=== PATIENT | female | born 1945 | race Caucasian/White ===

== ENCOUNTER 2016-08-29 05:42 | Day surgery (SDC) | payer MEDICARE, BC ==
[2016-08-29] MEDS ORDERED: Lactated Ringers 1,000 ML IV SCH (06:15)
[2016-08-29] MEDS ORDERED: fentaNYL 100 MCG/2 ML SDV ONE (07:09)
[2016-08-29] MEDS ORDERED: Midazolam 1 MG/ML 2 ML SDV ONE (07:09)
[2016-08-29] MEDS ORDERED: Propofol 200 MG/20 ML SDV ONE (07:09)
[2016-08-29 09:40] VITALS: BP 114/65
--- NOTE | 2016-09-01 15:47 | OR ---
DATE OF PROCEDURE: 08/29/2016 PREOPERATIVE DIAGNOSIS: History of colonic polyps. POSTOPERATIVE DIAGNOSIS: History of colonic polyps with normal colonoscopic examination. OPERATIVE PROCEDURE: Flexible colonoscopy. ANESTHESIA: IV sedation. INDICATION FOR PROCEDURE: The patient is 2 years' status post colonoscopy, in which an adenomatous polyp was removed. The plan is to proceed with a followup colonoscopy with biopsy and/or polypectomy as indicated. Potential risks of the procedure including bleeding and perforation were discussed, and the patient wishes to proceed. DETAILS OF PROCEDURE: The patient was taken to the operating room and placed in a left lateral decubitus position. After IV sedation was administered, the initial digital rectal exam was performed and was unremarkable. Colonoscope was then passed into the rectum with retroflexion revealing uncomplicated hemorrhoidal columns. The scope was eventually passed along the cecum and to that level, no abnormalities were noted. The patient had a good near prep along with mild amount of liquid stool present. The patient had no signs of recurrent polyps or other signs of neoplasia. No diverticula or areas of colitis were noted. The scope was then withdrawn. The above findings reconfirmed, and the procedure then concluded. Recommendation would be to repeat the colonoscopy in 5 years given the history of polyps. The patient is also complaining of some postprandial upper abdominal pain and nausea. She is scheduled to have a lysis of adhesions for recurrent partial small bowel obstruction on September 16 and will obtain a HIDA scan next Friday to evaluate the gallbladder with cholecystectomy potentially being done concurrently with that for the procedure on September 16. Felipe Mujica MD /[id number]
== END 2016-08-29 08:48 | disposition home or self-care (01) ==
LOC: JP.SDS 05:42
PROVIDERS: ATTEND Surgery
DX: Z12.11 Encounter for screening for malignant neoplasm of colon (principal); Z86.010 Personal history of colon polyps; R10.10 Upper abdominal pain, unspecified; R11.0 Nausea; I10 Essential (primary) hypertension; E11.9 Type 2 diabetes mellitus without complications; E78.5 Hyperlipidemia, unspecified
CPT/HCPCS: G0105; J2250; J2704; J3010; J7120

== ENCOUNTER 2016-09-16 09:27 | Inpatient (IN) | payer MEDICARE, BC ==
[~2016-09-16 09:27] MED LIST: Bupivacaine 0.5%/EPINEPHrine 1:200,000 50 ML MDV ONE; Meropenem 500 MG SDV ONE
[2016-09-16] MEDS ORDERED: Rocuronium 50 MG/5 ML Vial ONE (09:41)
[2016-09-16] MEDS ORDERED: fentaNYL 250 MCG/5 ML SDV ONE (09:41)
[2016-09-16] MEDS ORDERED: Propofol 200 MG/20 ML SDV ONE (09:41)
[2016-09-16] MEDS ORDERED: Ondansetron 4 MG/2 ML SDV ONE (09:41)
[2016-09-16] MEDS ORDERED: Dexamethasone 4 MG/ML SDV ONE (09:41)
[2016-09-16] MEDS ORDERED: Neostigmine Methylsulfate 1 MG/ML 5 ML Syringe ONE (09:41)
[2016-09-16] MEDS: cefOXitin 2 GM in Sodium Chloride 0.9% 50 ML IV ONE ×2 (13:17→17:53)
[2016-09-16] MEDS: Dextrose 5%-Lactated Ringers 1,000 ML IV SCH ×2 (13:27→17:46)
[2016-09-16] MEDS ORDERED: HYDROmorphone/Normal Saline 15 MG/30 ML PCA IV PRN (13:47)
[2016-09-16] MEDS ORDERED: Naloxone 0.4 MG/ML SDV IVPUSH PRN (13:47)
[2016-09-16] MEDS ORDERED: Naloxone 0.4 MG/ML SDV IV PRN (13:50)
[2016-09-16] MEDS ORDERED: Metoclopramide 10 MG/2 ML SDV ONE (15:04)
[2016-09-16] MEDS ORDERED: Insulin Aspart 100 Units/ML 3 ML Pen SUBCUT SCH (15:15)
[2016-09-16] MEDS ORDERED: Scopolamine 1.5 MG Transdermal Patch TRDERM SCH (15:30)
[2016-09-16] MEDS ORDERED: Ondansetron 4 MG/2 ML SDV IVPUSH PRN (16:18)
[2016-09-16] MEDS ORDERED: Glucose Gel 15 GM in 37.5 GM Tube PO PRN (16:25)
[2016-09-16] MEDS ORDERED: Glucagon,Human Recombinant 1 MG Vial IM PRN (16:25)
[2016-09-16] MEDS ORDERED: 50% Dextrose in Water 50 ML Syringe IVPUSH PRN (16:25)
[2016-09-16] MEDS: metFORMIN 500 MG Tab PO SCH (17:45)
[2016-09-16] MEDS: SCOPOLAMINE PATCH TOP SCH (17:53)
[2016-09-16] MEDS ORDERED: Pantoprazole 40 MG Vial IV SCH (18:00)
[2016-09-16] MEDS: cefOXitin 2 GM in Sodium Chloride 0.9% 50 ML IV SCH (20:27)
[2016-09-16] MEDS: hydrALAZINE 25 MG Tab PO SCH (20:34)
[2016-09-16] MEDS: Acetaminophen 1,000 MG in Premix Bag 1 BAG IV SCH (20:47)
[2016-09-16] MEDS ORDERED: Insulin Detemir 100 Units/ML 3 ML Pen SUBCUT SCH (21:00)
[2016-09-16] MEDS: Insulin Aspart 100 Units/ML 3 ML Pen SUBCUT PRN (21:34)
[2016-09-17] MEDS: cefOXitin 2 GM in Sodium Chloride 0.9% 50 ML IV SCH ×2 (02:50→08:20)
[2016-09-17] MEDS: Acetaminophen 1,000 MG in Premix Bag 1 BAG IV SCH ×2 (02:52→08:01)
[2016-09-17] MEDS ORDERED: HYDROmorphone 2 MG Tab PO PRN (03:30)
[2016-09-17] MEDS: metFORMIN 500 MG Tab PO SCH (07:57)
[2016-09-17] MEDS: Metoprolol Succinate 50 MG Tab.ER PO SCH ×2 (08:04→08:07)
[2016-09-17] MEDS: SCOPOLAMINE PATCH TOP SCH (08:08)
[2016-09-17] MEDS: Insulin Aspart 100 Units/ML 3 ML Pen SUBCUT PRN (08:14)
[2016-09-17 08:17] VITALS: BP 125/73
[2016-09-17] MEDS: hydrALAZINE 25 MG Tab PO SCH (08:17)
[2016-09-17] MEDS ORDERED: Liraglutide (rDNA Origin) 0.6 MG/0.1 ML 3 ML Pen SUBCUT SCH (09:00)
[2016-09-17] MEDS ORDERED: amLODIPine 10 MG Tab PO SCH (09:00)
[2016-09-17] MEDS ORDERED: Losartan 50 MG Tab PO SCH (09:00)
[2016-09-17] MEDS ORDERED: Hydrochlorothiazide 25 MG Tab PO SCH (09:00)
[2016-09-17] MEDS ORDERED: Aspirin 81 MG Tab.EC PO SCH (09:00)
--- NOTE | 2016-09-20 12:12 | DISCH ---
FINAL DIAGNOSES: 1. Biliary dyskinesia. 2. Partial small bowel obstruction secondary to adhesions and associated focal stricture of the small bowel. ADDITIONAL DIAGNOSES: 1. History of hypertension. 2. History of type 2 diabetes mellitus. 3. History of breast cancer with no known recurrence. 4. History of osteoarthritis. 5. History of dyslipidemia. OPERATIVE PROCEDURE: This was done on 09/16/2016; diagnostic laparoscopy with lysis of adhesions and, A. Cholecystectomy. B. Small-bowel strictureplasty. C. Placement of Interceed mesh to limit recurrent adhesion formation. HOSPITAL COURSE: This is a 70-year-old female presenting with recurrent partial small bowel obstruction. This was most pronounced after Luz fundoplication last fall, but she has had several attacks since that time. Also noted to have some biliary symptoms and had a CCK- stimulated HIDA scan, this had a normal numerical ejection fraction but caused reproduction of the patient's biliary type symptoms. Plan is to proceed with a laparoscopic cholecystectomy and small-bowel obstruction. Both the components were able to be completed laparoscopically. The patient's gallbladder was somewhat edematous and greyish in appearance consistent with chronic cholecystitis and did contain some small amount of tiny sludge and stones within it. Within the pelvis, the patient had quite a bit in way of omental adhesions. There was 1 section of small bowel that was particularly adherent to some of the adjacent mesentery which appeared to have a stricture at that location. This was taken down laparoscopically and the area reinforced with fibrin sealant. Interceed mesh was also placed to limit recurrent adhesion formation in that area. Postop, the patient tolerated a diet satisfactorily and will be sent home with a combination of Tylenol and/or Dilaudid. Otherwise, continue her usual medications, should be following up with Dr. Mujica in [facility] on 09/25/2016.
--- NOTE | 2016-09-23 09:44 | OR ---
DATE OF PROCEDURE: 09/16/2016 PREOPERATIVE DIAGNOSES: 1. Partial small bowel obstruction. 2. Biliary dyskinesia. POSTOPERATIVE DIAGNOSES: 1. Partial small bowel obstruction secondary to adhesions and focal stricture of small bowel. 2. Biliary dyskinesia. OPERATIVE PROCEDURE: 1. Diagnostic laparoscopy with lysis of adhesions:. a. Cholecystectomy (47901). b. Small bowel stricturoplasty (75528). c. Placement of Interceed mesh to limit recurrent adhesion formation within the pelvis and small bowel ([id number]). ANESTHESIA: General. BILLBOARD ERECTOR: Vickie Love PA-C and ABRAHAM Black. INDICATION FOR PROCEDURE: This is a 70-year-old female presenting with some episodes of recurrent small bowel obstruction. She was hospitalized last fall after having a Luz fundoplication, developed some degree of ileus, and then a full blown bowel obstruction treated with nasogastric tube. Over the winter, she has had several episodes of similar type of obstruction that were less severe and presents at this time for a diagnostic laparoscopy, possible laparotomy and release of the bowel obstruction with bowel resection as indicated. She also has has some separate symptoms suggestive of biliary colic. A CCK- stimulated HIDA scan while having a normal ejection fraction had a good reproduction of her symptoms and she will undergo a cholecystectomy as well. Potential risks of the procedures including bleeding, infection, and injury to underlying viscera, possible persistent or recurrent problems over time were all reviewed, and the patient wishes to proceed. PROCEDURE IN DETAIL: The patient was taken to the operating room. After general endotracheal anesthesia was induced and placed in a supine position, the abdomen was prepped and draped. Nelson catheter had been inserted. Beginning in the left upper quadrant, a transverse incision was made. The peritoneal cavity was entered under direct vision with Optiview trocar, and inflated to 15 mmHg pressure with CO2. Laparoscope was reinserted. Following this, eventually four additional 4 mm trocars were placed. Initial examination showed the gallbladder to be quite distended and diaz in appearance. As one peered down toward the pelvis, there was quite a bit in the way of adhesions between the omentum and anterior pelvic and abdominal wall. These did have some bowel loops running through them and would potentially be points of intermittent obstruction. Once these adhesions were lysed, there was an area of stricturing noted in the small bowel related to chronic scarring. This was then freed up with a Harmonic scalpel and the bowel was flipped over on itself open on the anterior mesenteric border and fired with internal firing of the IGNACIO andrade load, the common opening was closed with a purple load, thus completing the stricturoplasty, no mesenteric defect was noted. At this point, attention was taken to the cholecystectomy, the gallbladder was retracted anteriorly and laterally, and dissection began on the gallbladder neck, continued around the gallbladder neck and cystic duct junction. Once that area was well delineated, 3 clips were placed proximally, one distally in the gallbladder neck, cystic duct junction and cystic artery were divided. The gallbladder was then dissected off the gallbladder bed using Harmonic Scalpel, delivered through the upper midline port. This was noted to have some degree of sludge within it. Attention was once again taken down the pelvis. The area where the adhesion formation had been present was felt to likely readhere to the area where there appeared to have been the obstruction. Some fibrin glue was then placed over the area of the strictureplasty and some omentum pulled over surface of that. Between that area and the pelvis, Interceed mesh was placed to also separate the small bowel, omentum, and the abdominopelvic lubin to limit recurrent adhesion formation. The abdomen was irrigated with an antibiotic-containing saline solution and that point, no further problems were noted. Trocars were removed. The fascia at the 12 mm sites were closed with 0 Vicryl stitch and the skin with some 4-0 Vicryl skin stitch. Dressing was applied. The patient was taken to the recovery room in satisfactory condition. Physician assistant chief nursing officer, Vickie Love, played an essential role in assisting in this case, helping to position the patient, retract structures as needed, as well as cutting sutures and suturing when indicated. Her presence improved the patient's safety and decreased the operative time. Felipe Mujica MD /[id number]
== END 2016-09-17 10:38 | disposition home or self-care (01) | DRG 331 ==
LOC: JP.SDSSCHI 09:27 → JP.SDS 09:27 → EDSTATUS 10:15 → JP.2SS 15:20
PROVIDERS: ADMIT Surgery; ATTEND Surgery
PROC: 0FT44ZZ Resection of Gallbladder, Percutaneous Endoscopic Approach (ICD-10-PCS; principal; 2016-09-16)
PROC: 3E0M05Z Introduction of Adhesion Barrier into Peritoneal Cavity, Open Approach (ICD-10-PCS; principal; 2016-09-16)
PROC: 0DNW4ZZ Release Peritoneum, Percutaneous Endoscopic Approach (ICD-10-PCS; principal; 2016-09-16)
PROC: 0DQ84ZZ Repair Small Intestine, Percutaneous Endoscopic Approach (ICD-10-PCS; principal; 2016-09-16)
PROC: 0DNT4ZZ (ICD-10-PCS; principal; 2016-09-16)
DX: K56.5 Intestinal adhesions [bands] with obstruction (postinfection) (principal); K82.8 Other specified diseases of gallbladder; E11.9 Type 2 diabetes mellitus without complications; Z79.84 Long term (current) use of oral hypoglycemic drugs; I10 Essential (primary) hypertension; E78.5 Hyperlipidemia, unspecified; Z85.3 Personal history of malignant neoplasm of breast; M17.0 Bilateral primary osteoarthritis of knee
CPT/HCPCS: 36415; 80048; 80053; 82962; 83735; 84100; 85025; 85027; 88304; 94762; A9270-GY; C9113; J0131; J0694; J1100; J1170; J2185; J2405; J2704; J2765; J3010; J7042; J7050

== ENCOUNTER 2020-10-23 05:40 | Day surgery (SDC) | payer MEDICARE, BC ==
[~2020-10-23 05:40] MED LIST changes: -Bupivacaine 0.5%/EPINEPHrine 1:200,000 50 ML MDV ONE; +Lactated Ringers 1,000 ML IV SCH; -Meropenem 500 MG SDV ONE
[2020-10-23] MEDS ORDERED: Lactated Ringers 1,000 ML IV SCH (06:45)
[2020-10-23] MEDS ORDERED: Propofol 200 MG/20 ML SDV ONE (07:05)
[2020-10-23] MEDS ORDERED: fentaNYL 100 MCG/2 ML SDV ONE (07:05)
[2020-10-23] MEDS ORDERED: Midazolam 1 MG/ML 2 ML SDV ONE (07:05)
[2020-10-23] MEDS ORDERED: Amoxicillin 500 MG Cap PO ONE (08:00)
[2020-10-23 08:48] VITALS: BP 116/65; PULSE 76
--- NOTE | 2020-10-30 12:20 | OR ---
DATE OF PROCEDURE: 10/23/2020 SURGEON: Felipe Mujica MD PREOPERATIVE DIAGNOSES: Epigastric discomfort and heartburn. POSTOPERATIVE DIAGNOSES: 1. Intact Luz fundoplication without significant inflammation of esophagogastric junction. 2. Diffuse mild gastritis with minimal residual food (bezoar) with focal erosions in antrum. OPERATIVE PROCEDURE: Esophagogastroduodenoscopy with antral biopsies for CLOtest. ANESTHESIA: IV sedation. INDICATIONS FOR PROCEDURE: This is a 75-year-old female, some time status post Luz fundoplication, initially got a very good result, now recently is having some increasing sense of heartburn again as well as epigastric fullness. She did start Protonix and stopped Victoza, which she has found somewhat helpful with regard to those symptoms. The plan is to proceed with upper GI endoscopy with biopsies and dilation as indicated. Potential risks of the procedure including bleeding and perforation were discussed and the patient wishes to proceed. DETAILS OF PROCEDURE: The patient was taken to the operating room and placed in a left lateral decubitus position. IV sedation was administered, after which the upper GI endoscope was passed orally through the length of the esophagus into the stomach with retroflexion view of the fundus, thereafter through the pyloric channel into the proximal duodenum. The patient overall had no significant inflammation of hypopharynx, larynx, upper esophageal sphincter, and esophageal body. At the EG junction, she had an intact Luz effect and there was no significant inflammation grossly seen at the esophagogastric junction. Within the stomach, there was some scattered old food present. This was more of particles of food rather than any well-defined bezoar. There was more or less a diffuse mild gastritis, which was more intense in the antrum, where there were some focal erosions present. The pyloric channel was widely patent and visualized portions of the duodenum were unremarkable. At this point, biopsies were obtained from the antrum and sent for CLOtest for H pylori. Minimal bleeding from the biopsy site was seen, and the procedure was then concluded. The patient was taken to the recovery room in satisfactory condition. The plan will be to continue the present medical management, i.e. off Victoza and continue the Protonix. Felipe Mujica MD /[id number]
== END 2020-10-23 08:45 | disposition home or self-care (01) ==
LOC: JP.SDS 05:40
PROVIDERS: ATTEND Surgery
DX: K20.90 Esophagitis, unspecified without bleeding (principal); K25.9 Gastric ulcer, unspecified as acute or chronic, without hemorrhage or perforation; T18.2XXA Foreign body in stomach, initial encounter; K29.70 Gastritis, unspecified, without bleeding; I10 Essential (primary) hypertension; E78.5 Hyperlipidemia, unspecified; G47.33 Obstructive sleep apnea (adult) (pediatric); E11.9 Type 2 diabetes mellitus without complications
CPT/HCPCS: 43239; 87081; A9270; J2704; J3010; J7120; J2250

== ENCOUNTER 2020-11-06 07:23 | Inpatient (IN) | payer MEDICARE, BC ==
[2020-11-06] MEDS ORDERED: Acetaminophen 500 MG Tab PO ONE (08:00)
[2020-11-06] MEDS ORDERED: Ondansetron 4 MG/2 ML SDV ONE (08:07)
[2020-11-06] MEDS ORDERED: Glycopyrrolate 0.2 MG/ML 5 ML MDV ONE (08:07)
[2020-11-06] MEDS ORDERED: Neostigmine Methylsulfate 1 MG/ML 5 ML Syringe ONE (08:07)
[2020-11-06] MEDS ORDERED: Rocuronium 50 MG/5 ML Vial ONE (08:07)
[2020-11-06] MEDS: Lactated Ringers 1,000 ML IV SCH ×2 (08:07→22:42)
[2020-11-06] MEDS ORDERED: Dexamethasone 4 MG/ML SDV ONE (08:07)
[2020-11-06] MEDS ORDERED: fentaNYL 250 MCG/5 ML SDV ONE (08:07)
[2020-11-06] MEDS ORDERED: Propofol 200 MG/20 ML SDV ONE (08:07)
[2020-11-06] MEDS ORDERED: Succinylcholine 200 MG/10 ML MDV ONE (08:07)
--- NOTE | 2020-11-06 08:25 | PCM.HP.2 ---
H&P History of Present Illness - General Date of Service: 11/06/20 Source of Information: Patient History Limitations: Reports: No Limitations - History of Present Illness Initial Comments - Free Text/Narative: Nancy reports that her thyroid labs have been abnormal for about 1 year and the past 4 months she has been symptomatic. Symptoms of weight loss, fatigue, dysphagia, heart racing and hand tremor. Onset of Symptoms: Reports: Gradual Associated Symptoms: Reports: No Other Symptoms Neck Pain Score (Numeric/FACES): 3 - Related Data Allergies/Adverse Reactions: Allergies Allergy/AdvReac Type Severity Reaction Status Date / Time No Known Allergies Allergy Verified 11/06/20 07:53 Home Medications: Home Meds Hydrochlorothiazide/Losartan [Hyzaar 100-25 MG] 25 - 100 mg PO DAILY 08/17/14 [History] amLODIPine [Norvasc] 10 mg PO DAILY 08/17/14 [History] hydrALAZINE [Apresoline] 25 mg PO BID 08/17/14 [History] Rosuvastatin [Crestor] 20 mg PO DAILY 01/25/16 [History] Cyanocobalamin (Vitamin B-12) [Vitamin B-12] 1,000 mcg PO DAILY 08/27/16 [History] Pantoprazole Sodium [Protonix] 40 mg PO DAILY 10/11/20 [History] Semaglutide [Ozempic] 0.25 mg SQ Q7D 10/11/20 [History] Amoxicillin 2,000 mg PO ASDIRECTED 11/03/20 [History] Aspirin [Adult Low Dose Aspirin EC] 81 mg PO DAILY 11/03/20 [History] metFORMIN [Riomet] 1,000 mg PO BID 11/03/20 [History] Past Medical History HEENT History: Reports: Impaired Vision, Otitis Media Other HEENT History: tinnitus Cardiovascular History: Reports: High Cholesterol, Hypertension Gastrointestinal History: Reports: Bowel Obstruction, Colon Polyp, Gastritis, GERD, Hiatal Hernia Other Gastrointestinal History: bowel obstruction from this stay Genitourinary History: Reports: None CURRICULUM DEVELOPER History: Reports: Dysfunctional Uterine Bleeding, Fibroids, Musculoskeletal History: Reports: Arthritis, Fracture Other Musculoskeletal History: wrist right-plate Neurological History: Reports: Vertigo Other Neuro History: tremor Endocrine/Metabolic History: Reports: Diabetes, Type II, IDDM Hematologic History: Reports: Anemia Oncologic (Cancer) History: Reports: Breast Other Oncologic History: left- no node involvement Dermatologic History: Reports: Other (See Below) Other Dermatologic History: ganglion cyst right leg lipoma left arm - Infectious Disease History Infectious Disease History: Reports: Measles - Past Surgical History Musculoskeletal Surgical History: Reports: Ganglion Cyst, Knee Replacement, Other (See Below) Other Musculoskeletal Surgeries/Procedures:: bilat knee-Jan 2018 Oncologic Surgical History: Reports: Mastectomy Social & Family History - Family History Family Medical History: No Pertinent Family History HEENT: Reports: Cataract Cardiac: Reports: High Cholesterol, Hypertension, PVD/COD : Reports: Diabetic Nephropathy Musculoskeletal: Reports: Arthritis Neurological: Reports: Neuropathy, Diabetic Endocrine/Metabolic: Reports: Diabetes, Type I - Tobacco Use Tobacco Use Status *Q: Never Tobacco User - Caffeine Use Caffeine Use: Reports: Coffee Caffeine Use Comment: 2-3 cups/day - Recreational Drug Use Recreational Drug Use: No H&P Review of Systems - Review of Systems: Review Of Systems: See Below General: Reports: Fatigue, Weight Loss HEENT: Reports: No Symptoms Pulmonary: Reports: No Symptoms Cardiovascular: Reports: No Symptoms Gastrointestinal: Reports: Decreased Appetite, Other (dysphagia) Genitourinary: Reports: No Symptoms Musculoskeletal: Reports: No Symptoms Skin: Reports: No Symptoms Psychiatric: Reports: No Symptoms Neurological: Reports: Tremors (hands) Hematologic/Lymphatic: Reports: No Symptoms Immunologic: Reports: No Symptoms Exam - Exam Exam: See Below - Vital Signs Vital Signs: Last Vital Signs Temp 97.0 F 11/06/20 07:51 Pulse 86 11/06/20 07:51 Resp 16 11/06/20 07:51 BP 120/59 L 11/06/20 07:51 Pulse Ox 97 11/06/20 07:51 Weight: 134 lb 3.2 oz - Exam General: Alert, Oriented, Cooperative HEENT: PERRLA Neck: Supple, Thyromegaly Lungs: Clear to Auscultation, Normal Respiratory Effort Cardiovascular: Regular Rate, Regular Rhythm GI/Abdominal Exam: Soft, Non-Tender (Female) Exam: Deferred Rectal (Female) Exam: Deferred Back Exam: Normal Inspection, Full Range of Motion Extremities: Normal Inspection, Normal Range of Motion, No Pedal Edema Skin: Warm, Dry, Intact Neurological: Cranial Nerves Intact, Reflexes Equal Bilateral Neuro Extensive - Mental Status: Alert, Oriented x3, Normal Mood/Affect, Normal Cognition, Memory Intact Neuro Extensive - Motor, Sensory, Reflexes: CN II-XII Intact Psychiatric: Alert, Normal Affect, Normal Mood Sepsis Event Note - Focused Exam Vital Signs: Vital Signs Temp Pulse Resp BP Pulse Ox 11/06/20 07:51 97.0 F 86 16 120/59 L 97 - Problem List (1) Thyroid goiter SNOMED Code(s): 4643458 ICD Code: E04.9 - NONTOXIC GOITER, UNSPECIFIED Status: Acute Current Visit: Yes (2) Toxic thyroid nodule SNOMED Code(s): 70407704 ICD Code: E05.10 - THYROTXCOSIS W TOXIC SING THYROID NODULE W/O THYROTXC CRISIS Status: Acute Current Visit: Yes Problem List Initiated/Reviewed/Updated: Yes Orders Last 24hrs: Active Orders 24 hr Category Date Time Status RT Incentive Spirometry [RC] ASDIRECTED Care 11/06/20 08:00 Active CBC W/O DIFF,HEMOGRAM [HEME] Routine Lab 11/06/20 08:12 Ordered COMPREHENSIVE METABOLIC PN,CMP [CHEM] Routine Lab 11/06/20 08:12 Ordered MAGNESIUM [CHEM] Routine Lab 11/06/20 08:12 Ordered PHOSPHORUS [CHEM] Routine Lab 11/06/20 08:12 Ordered Lactated Ringers [Ringers, Lactated] 1,000 ml Med 11/06/20 08:00 Active IV ASDIRECTED ceFAZolin [Ancef 2 GM/50 ML] 2 gm Med 11/06/20 08:30 Active Premix Bag 1 bag IV ONETIME Sequential Compression Device [OM.PC] Routine Oth 11/06/20 08:00 Ordered EKG 12 Lead [EK] Routine Ther 11/06/20 08:00 Ordered Medication Orders Lactated Ringer's (Ringers, Lactated) 1,000 mls @ 100 mls/hr IV ASDIRECTED YANNICK Last Admin: 11/06/20 08:07 Dose: 100 mls/hr Documented by: PEREZ Cefazolin Sodium/Dextrose 2 gm (/ Premix) 50 mls @ 100 mls/hr IV ONETIME ONE Stop: 11/06/20 08:59 Assessment/Plan Comment:: Assessment: Toxic Nodule Right Thyroid Large Goiter Left Thyroid with Family History or Thyroid Cancer Controlled Type 2 Diabetes Personal History of malignant neoplasm of breast Benign Essential Hypertension Dyslipidemia Tubular adenoma of colon Plan: Total Thyroidectomy with Frozen Sections - General Anesthesia - 11/06/2020 - Felipe Mujica MD After preoperative evaluation and discussion of possible risks and complications patients wishes to proceed with surgical procedure. Vickie Clement 11/06/2020 - Mortality Measure Prognosis:: Good
[2020-11-06] MEDS ORDERED: ceFAZolin 2 GM in Premix Bag 1 BAG IV ONE (08:30)
[2020-11-06] MEDS ORDERED: fentaNYL 100 MCG/2 ML SDV ONE (10:38)
[2020-11-06] MEDS: metFORMIN 500 MG Tab PO SCH ×2 (13:22→17:08)
[2020-11-06] MEDS ORDERED: Glucagon,Human Recombinant 1 MG Vial IM PRN (13:54)
[2020-11-06] MEDS ORDERED: 50% Dextrose in Water 50 ML Syringe IVPUSH PRN (13:54)
[2020-11-06] MEDS ORDERED: Glucose Gel 15 GM in 37.5 GM Tube PO PRN (13:54)
[2020-11-06] MEDS ORDERED: Ondansetron 4 MG/2 ML SDV IVPUSH PRN (14:00)
[2020-11-06] MEDS ORDERED: HYDROmorphone 0.5 MG/0.5 ML Syringe IVPUSH PRN (14:00)
[2020-11-06] MEDS ORDERED: Acetaminophen 325 MG Tab PO SCH (14:00)
[2020-11-06] MEDS ORDERED: HYDROmorphone 1 MG/ML Syringe IV PRN (14:00)
[2020-11-06] MEDS: HYDROmorphone 2 MG Tab PO PRN ×2 (14:14→20:04)
[2020-11-06] MEDS: Acetaminophen Soln 650 MG/20.3 ML UD Cup PO SCH ×2 (14:19→19:50)
[2020-11-06] MEDS: Magnesium Sulfate/Water 2 GM in Premix Bag 1 BAG IV SCH ×2 (14:23→19:50)
[2020-11-06] MEDS: Insulin Lispro 100 Unit/ML 3 ML KwikPen SUBCUT SCH ×2 (17:05→22:06)
[2020-11-06] MEDS: ceFAZolin 1 GM in Premix Bag 1 BAG IV SCH (17:08)
[2020-11-06] MEDS: hydrALAZINE 25 MG Tab PO SCH (22:05)
[2020-11-07] MEDS: HYDROmorphone 2 MG Tab PO PRN (00:06)
[2020-11-07] MEDS: ceFAZolin 1 GM in Premix Bag 1 BAG IV SCH ×2 (00:06→08:33)
[2020-11-07] MEDS: Magnesium Sulfate/Water 2 GM in Premix Bag 1 BAG IV SCH ×4 (02:57→20:21)
[2020-11-07] MEDS: Acetaminophen Soln 650 MG/20.3 ML UD Cup PO SCH ×4 (02:59→20:21)
[2020-11-07] MEDS: Insulin Lispro 100 Unit/ML 3 ML KwikPen SUBCUT SCH ×4 (05:14→21:44)
[2020-11-07] MEDS ORDERED: Calcium Carbonate 500 MG Tab.Chew PO PRN (07:32)
--- NOTE | 2020-11-07 08:06 | PCM.EKG ---
#1 Interpretation EKG Date: 11/06/20 Time: 07:39 Rhythm: NSR Rate (Beats/Min): 83 [place]: Normal P-Wave: Present QRS: Normal ST-T: Normal QT: Normal Comparison: NA - No Prior EKG
[2020-11-07] MEDS: Losartan 50 MG Tab PO SCH (08:35)
[2020-11-07] MEDS: amLODIPine 5 MG Tab PO SCH (08:36)
[2020-11-07] MEDS: hydrALAZINE 25 MG Tab PO SCH ×2 (08:36→20:26)
[2020-11-07] MEDS: Aspirin 81 MG Tab.EC PO SCH (08:36)
[2020-11-07] MEDS: Pantoprazole 40 MG Tab.CR PO SCH (08:37)
[2020-11-07] MEDS: metFORMIN 500 MG Tab PO SCH ×2 (08:37→17:45)
[2020-11-07] MEDS: Hydrochlorothiazide 25 MG Tab PO SCH (08:38)
[2020-11-07] MEDS: Rosuvastatin 10 MG Tab PO SCH (08:38)
[2020-11-07] MEDS ORDERED: Potassium Chloride 20 MEQ Tab.ER PO ONE (09:00)
--- NOTE | 2020-11-07 09:54 | PN ---
DATE OF SERVICE: 11/07/2020 SUBJECTIVE: Deirdre is postop day #1. Pain has been controlled with Tylenol liquid and Dilaudid. She has had 840 in orally and 3200 out. HIGINIO drain put out 105 of a light red drainage. REVIEW OF SYSTEMS: Remainder of review of systems negative for any pertinent positives and negatives. OBJECTIVE: GENERAL: Deirdre Alba is a pleasant 75-year-old female. VITAL SIGNS: TPR is 95.7, 71, 16, blood pressure 105/57. HEENT: Negative. NECK: Dressing dry and intact. HIGINIO drain as above. Voice is normal. HEART: Regular rate and rhythm. LUNGS: Clear. EXTREMITIES: Without peripheral edema. ASSESSMENT: Total thyroidectomy with removal of left substernal "goiter." POSTOPERATIVE DIAGNOSIS: 1. Hyperthyroidism secondary to toxic thyroid nodule right side of isthmus. 2. Large goiter left thyroid with marked pressure symptoms and substernal extension. 3. Date of procedure: 11/06/2020. Surgeon: Felipe Mujica MD. PLAN: 1. KCl 40 mEq p.o. 1 time. 2. Consistent carb regular diet. 3. Remove dressing. 4. Saline lock IV if oral intake adequate. 5. Dilaudid orally. 6. Tums 1000 mg q.2 hours p.r.n. any numbness, tingling in face or extremities. 7. Communication order: May take what the patient desires for cough. 8. Check CBC, CMP, and phos in a.m. 9. We will evaluate p.r.n. or in a.m. Vickie Love PA-C /[id number]
[2020-11-08] MEDS: Magnesium Sulfate/Water 2 GM in Premix Bag 1 BAG IV SCH ×2 (02:14→07:39)
[2020-11-08] MEDS: Acetaminophen Soln 650 MG/20.3 ML UD Cup PO SCH ×2 (02:14→07:45)
[2020-11-08] MEDS: Insulin Lispro 100 Unit/ML 3 ML KwikPen SUBCUT SCH (07:47)
[2020-11-08] MEDS: Pantoprazole 40 MG Tab.CR PO SCH (07:47)
[2020-11-08] MEDS: metFORMIN 500 MG Tab PO SCH (07:47)
[2020-11-08 07:54] VITALS: BP 120/74; PULSE 70
[2020-11-08] MEDS: hydrALAZINE 25 MG Tab PO SCH ×2 (07:54→08:24)
[2020-11-08] MEDS: Losartan 50 MG Tab PO SCH ×2 (07:56→08:25)
[2020-11-08] MEDS: amLODIPine 5 MG Tab PO SCH ×2 (07:57→08:25)
[2020-11-08] MEDS: Hydrochlorothiazide 25 MG Tab PO SCH (07:59)
[2020-11-08] MEDS ORDERED: Levothyroxine 100 MCG Tab PO SCH (08:10)
[2020-11-08] MEDS: Rosuvastatin 10 MG Tab PO SCH (08:25)
[2020-11-08] MEDS: Aspirin 81 MG Tab.EC PO SCH (08:25)
--- NOTE | 2020-11-09 13:04 | DISCH ---
ADMISSION DIAGNOSES: 1. Toxic thyroid nodule on the right and thyroid goiter left. 2. Type 2 diabetes. 3. Benign essential hypertension. 4. Tubular adenoma of colon. 5. History of breast cancer. DISCHARGE DIAGNOSIS: Total thyroidectomy with removal of left substernal (goiter). POSTOPERATIVE DIAGNOSES: 1. Hyperthyroidism secondary to toxic thyroid nodule, right side of isthmus. 2. Large goiter, left thyroid with marked pressure symptoms and substernal extension. 3. Date of procedure: 11/06/2020. Surgeon: Felipe Mujica MD. HISTORY: Deirdre Alba is a pleasant 75-year-old female with symptomatic hyperthyroidism. After preoperative evaluation and discussion of possible risks and possible complications, she wished to proceed with surgical procedure. HOSPITAL COURSE: Deirdre had her surgery on 11/06/2020. She had no operative complications. On postoperative day #1, her potassium was low and she was given 1 dose of KCl 40 mEq. Diet was restarted. IV was saline locked. She was started on Dilaudid orally. On postoperative day #2, hemoglobin was 8.7, ferritin was 107, potassium was 3.7. Pain was controlled. Activity was good. Oral intake adequate. Vital signs stable. She was able to be discharged to home. PHYSICAL EXAMINATION: GENERAL: Deirdre Alba is a pleasant 75-year-old female. VITAL SIGNS: Height is 5 feet 3 inches, weight 134 pounds, BMI is 23. TPR is 95.4, 70, 16, blood pressure 120/74. HEENT: Negative. NECK: Incision looks good. HIGINIO drain intact draining a serosanguineous drainage and was 13 over the past 24 hours. HEART: Regular rate and rhythm. LUNGS: Clear. EXTREMITIES: Negative. DISPOSITION: Discharged to home. CONDITION: Stable and improving. FOLLOWUP: 1. With Vickie Love PA-C, on 11/10/2020 at 10 a.m. 2. Followup with Felipe Mujica MD, on 11/15/2020 at 10 a.m. 3. Check a CMP and CBC prior to that appointment at 9:30. HOME MEDICATIONS: Dilaudid 2 mg p.o. q.4 hours p.r.n. pain, #12; and Synthroid 100 mcg p.o. before breakfast, #90. To resume home medications. DIET: Diabetic diet as tolerated. Drink 8 to 10 glasses of water a day. ACTIVITY: No lifting greater than 10 pounds for 6 weeks. OTHER ACTIVITY: Walk 6 times daily inside your home unless you are with someone. Driving: Do not drive for 1 week or within 6 hours of taking pain medication. Shower/bathing: May shower. DISCHARGE INSTRUCTIONS: Notify provider if any fever, increased pain, swelling, redness, drainage, nausea, or vomiting. SPECIAL INSTRUCTIONS: 1. Strip, empty, measure, and record HIGINIO drain 4 times a day. 2. Bring record of HIGINIO drainage to clinic appointment. 3. If you should experience any numbness or tingling in face or extremities, call hospital or clinic and take 2 Tums every 2 hours until symptoms go away. You may be asked to come into the lab for some blood tests. /[id number]
[2020-11-12] MEDS ORDERED: OZEMPIC SUBCUT SCH (09:00)
--- NOTE | 2020-11-20 10:37 | OR ---
DATE OF PROCEDURE: 11/06/2020 SURGEON: Felipe Mujica MD PREOPERATIVE DIAGNOSES: 1. 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 2. 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 OPERATIVE PROCEDURE: Thyroid exploration with total thyroidectomy including removal of left substernal goiter ([id number]). ANESTHESIA: General. ADMINISTRATION INTERNSHIP: Vickie Love PA-C. INDICATIONS FOR PROCEDURE: This is a 75-year-old female recently noted to be hyperthyroid by evidence of a low TSH. A nuclear medicine scan was obtained which showed a single toxic nodule in the right thyroid lobe more or less adjacent to isthmus. The patient was also noted to have a very large goiter involving the left thyroid lobe with 2 nodules there that were clinically meeting criteria for fine-needle aspiration. Given this, the plan is to proceed with a total thyroidectomy with intraoperative frozen section. Potential risks of the procedure including bleeding, infection, injury to the recurrent laryngeal nerve, problems with either short-term or long-term hypoparathyroidism as well as remote possibility of cardiopulmonary, septic, or hemorrhagic complications leading to were discussed, and the patient wishes to proceed. DETAILS OF PROCEDURE: The patient was taken to the operating room, placed in a supine position. After general endotracheal anesthesia was induced, a roll was placed underneath the shoulders and the upper chest and neck areas were prepped and draped. A transverse collar incision was then made and carried down through the skin, subcutaneous tissue, platysmal area. Subplatysmal flaps were then raised superiorly and inferiorly and the strap muscles were then divided in the midline. Initial dissection began on the right side with retraction of the strap muscles off the right thyroid lobe. The isthmus was then initially divided more or less flush with the left thyroid lobe. On the right side, then the inferior and middle thyroid veins were divided with Harmonic scalpel, and the upper pole vessels were then taken with Harmonic scalpel as well. The right lobe was then mobilized medially and the branches of the inferior thyroid artery were divided flush with the capsule reflecting the parathyroid glands away from the capsule during the course of that dissection. The main attachments of the trachea and ligament of [place] were then taken with Harmonic scalpel. The recurrent laryngeal nerve was identified and confirmed to be intact at the conclusion of the procedure. Attention was then taken to the left side. This lobe was quite large and had a significant substernal component extending down to the level of the aortic arch. This substernal component was initially mobilized upward bluntly and similar dissection and division of the vessels as per the right side was accomplished and that specimen delivered from the field. Again, the recurrent laryngeal nerve on the left side was confirmed to be intact and the parathyroid glands appeared to be intact as well, as they had been reflected off the capsule of the thyroid gland maintaining blood supply from the inferior thyroid artery. Frozen sections of the nodules were obtained. These all appeared to be follicular lesions. At the size that they were presently identified at, these likely will be benign as follicular lesions over 4 cm tend to be more likely malignant and the differentiation would be on the permanent sections based on the evidence of capsular and vascular invasion. There is no central lymphadenopathy present. The strap muscles were then approximated with a 3-0 Vicryl stitch after a Khris-Beyer drain had been placed to the left side of the neck and draped across the area of the dissection. The platysmal layer was then closed with a 4-0 Vicryl stitch and the skin with a 5-0 Vicryl subcuticular stitch and surgical glue applied. Pressure dressing was placed. Drain was sutured to the skin with some 4-0 Vicryl stitch and the patient was taken to the recovery room in satisfactory condition. Physician instructional support assistant, Vickie Love, played an essential role in assisting in this case, helping to position the patient, retract structures as needed as well as suturing and cutting sutures when indicated. Her presence improved patient safety and decreased the operative time. Felipe Mujica MD /[id number]
== END 2020-11-08 11:10 | disposition home or self-care (01) | DRG 627 ==
LOC: JP.SDS 07:23 → JP.SDSSCHI 07:23 → EDSTATUS 08:45 → JP.MS 11:10
PROVIDERS: ADMIT Surgery; ATTEND Surgery
PROC: 0GTJ0ZZ Resection of Thyroid Gland Isthmus, Open Approach (ICD-10-PCS; principal; 2020-11-06)
PROC: 0GTH0ZZ Resection of Right Thyroid Gland Lobe, Open Approach (ICD-10-PCS; 2020-11-06)
PROC: 0GTG0ZZ Resection of Left Thyroid Gland Lobe, Open Approach (ICD-10-PCS; 2020-11-06)
DX: E05.20 Thyrotoxicosis with toxic multinodular goiter without thyrotoxic crisis or storm (principal); E04.9 Nontoxic goiter, unspecified; H54.7 Unspecified visual loss; E78.00 Pure hypercholesterolemia, unspecified; I10 Essential (primary) hypertension; K21.9 Gastro-esophageal reflux disease without esophagitis; K44.9 Diaphragmatic hernia without obstruction or gangrene; M19.90 Unspecified osteoarthritis, unspecified site; D64.9 Anemia, unspecified; Z96.659 Presence of unspecified artificial knee joint; E78.5 Hyperlipidemia, unspecified; D12.6 Benign neoplasm of colon, unspecified; Z79.899 Other long term (current) drug therapy; Z79.82 Long term (current) use of aspirin; Z79.84 Long term (current) use of oral hypoglycemic drugs; Z85.3 Personal history of malignant neoplasm of breast
CPT/HCPCS: 36415; 80053; 82728; 82947; 83735; 84100; 85027; 88307; 93005; 94762; A9270-GY; J0330; J0690; J1100; J1815; J2020; J2405; J2704; J2710; J3010; J3475; J3490; J7120

== ENCOUNTER 2023-01-01 08:27 | Day surgery (SDC) | payer MEDICARE, BC ==
[~2023-01-01 08:27] MED LIST changes: -Lactated Ringers 1,000 ML IV SCH; +Propofol 200 MG/20 ML SDV ONE; +fentaNYL 50 MCG/ML SDV ONE
[2023-01-01] MEDS ORDERED: Lactated Ringers 1,000 ML IV SCH (09:00)
[2023-01-01] MEDS ORDERED: Dextrose 5%-Lactated Ringers 1,000 ML IV SCH (09:30)
[2023-01-01 11:02] LABS: BASOPHILS ABSOLUTE AUTO 0.03 K/uL (0.00-0.10); BASOPHILS PERCENT AUTO 0.5 % (0.1-1.3); EOSINOPHILS ABSOLUTE AUTO 0.04 K/uL (0.00-0.40); EOSINOPHILS PERCENT AUTO 0.7 % (0.0-5.4); IMMATURE GRAN ABSOLUTE AUTO 0.03 K/uL (0.00-0.23); IMMATURE GRAN PERCENT AUTO 0.5 % (0.0-0.7); LYMPHOCYTES ABSOLUTE AUTO 0.74 K/uL (0.8-3.3); LYMPHOCYTES PERCENT AUTO 12.5 % (11.4-47.7); MEAN CORPUSCULAR HGB CONC 33.3 g/dL (31.6-35.5); MEAN CORPUSCULAR VOLUME 95.9 fL (81.4-99.0); MONOCYTES ABSOLUTE AUTO 0.55 K/uL (0.20-0.90); MONOCYTES PERCENT AUTO 9.3 % (3.3-12.6); NEUTROPHILS ABSOLUTE AUTO 4.53 K/uL (1.0-7.6); NEUTROPHILS PERCENT AUTO 76.5 % (40.0-78.1); PLATELET COUNT,PLT 163 K/uL (130-375); RED BLOOD CELL COUNT 3.44 M/uL (3.77-5.24); WHITE BLOOD CELL COUNT,WBC 5.9 K/uL (3.2-11.0)
[2023-01-01 11:22] LABS: A/G RATIO 1.2 (1.2-2.2); ALANINE AMINOTRANSFERASE,ALT 30 U/L (12-78); ALBUMIN 3.3 g/dL (3.4-5.0); ALKALINE PHOSPHATASE 41 U/L (46-116); ASPARTATE AMNIOTRANSFERASE,AST 13 U/L (15-37); BILIRUBIN TOTAL 1.3 mg/dL (0.2-1.0); BLOOD UREA NITROGEN,BUN 17 mg/dL (7-18); CALCIUM 7.3 mg/dL (8.5-10.1); CARBON DIOXIDE,CO2 23 mmol/L (21-32); CHLORIDE,CL 107 mmol/L (100-108); CREATININE 1.3 mg/dL (0.6-1.0); EST CRCL DRUG DOSING (CG) 29.98 mL/min; ESTIMATED GFR 42 mL/min (>60); GLUCOSE RANDOM 84 mg/dL (74-106); POTASSIUM,K 3.2 mmol/L (3.6-5.2); PROTEIN TOTAL,TP 6.1 g/dL (6.4-8.2); SODIUM,NA 140 mmol/L (140-148)
[2023-01-01 11:24] LABS: ANION GAP 13.2 mmol/L (5.0-14.0)
[2023-01-01] MEDS: Potassium Chloride 10 MEQ in Premix Bag 1 BAG IV SCH ×2 (11:39→12:47)
[2023-01-01 13:42] VITALS: BP 130/67; PULSE 79
== END 2023-01-01 13:50 | disposition home or self-care (01) ==
LOC: JP.SDS 08:27
PROVIDERS: ATTEND Student in an Organized Health Care Education/Training Program
DX: Z12.11 Encounter for screening for malignant neoplasm of colon (principal); D12.0 Benign neoplasm of cecum; E78.00 Pure hypercholesterolemia, unspecified; E11.22 Type 2 diabetes mellitus with diabetic chronic kidney disease; Z80.0 Family history of malignant neoplasm of digestive organs; N18.9 Chronic kidney disease, unspecified; Z79.4 Long term (current) use of insulin
CPT/HCPCS: 36415; 45380; 80053; 85025; 88305; J1642; J2704; J3010; J3480; J7121

== ENCOUNTER 2023-12-26 16:39 | Emergency (ER) | payer MEDICARE, BC ==
[2023-12-26 17:22] VITALS: BP 132/60; PULSE 76
== END 2023-12-26 19:09 | disposition home or self-care (01) ==
LOC: JP.ED 16:39
DX: H53.2 Diplopia (principal); I12.9 Hypertensive chronic kidney disease with stage 1 through stage 4 chronic kidney disease, or unspecified chronic kidney disease; N18.9 Chronic kidney disease, unspecified; E78.00 Pure hypercholesterolemia, unspecified; K21.9 Gastro-esophageal reflux disease without esophagitis; E11.22 Type 2 diabetes mellitus with diabetic chronic kidney disease; E05.90 Thyrotoxicosis, unspecified without thyrotoxic crisis or storm; Z90.49 Acquired absence of other specified parts of digestive tract; Z90.710 Acquired absence of both cervix and uterus; Z79.82 Long term (current) use of aspirin; Z79.2 Long term (current) use of antibiotics; Z79.890 Hormone replacement therapy; Z79.899 Other long term (current) drug therapy; Z79.85 Long-term (current) use of injectable non-insulin antidiabetic drugs
CPT/HCPCS: 70450; 99284